=== PATIENT | male | born 1940 | race Caucasian/White ===

== ENCOUNTER 2017-04-09 01:18 | Emergency (ER) | payer MEDICARE, BC ==
[2017-04-09 01:58] VITALS: BP 138/81
--- NOTE | 2017-04-09 02:21 | EDM.PDOC ---
ED HPI GENERAL MEDICAL PROBLEM - General Chief Complaint: Abdominal Pain Stated Complaint: STOMACH PAIN Time Seen by Provider: 04/09/17 02:18 Source of Information: Reports: Patient, Family History Limitations: Reports: No Limitations - History of Present Illness INITIAL COMMENTS - FREE TEXT/NARRATIVE: This patient comes in with complaint of constipation. He's had some mild constipation for a few days. He's been taking a little bit of neuroleptics off and on. Last bowel movement was yesterday morning and it was pretty small actually his then later said that he actually had a small bowel movement today after taking some Miramax. He has mostly some mild right-sided abdominal pain. Earlier today it was very sharp especially when he was up moving around but he said once he laid down on the stretcher the pain completely went away - Related Data Allergies Allergy/AdvReac Type Severity Reaction Status Date / Time Penicillins Allergy Unknown Cannot Verified 04/09/17 01:45 Remember Home Meds: Home Meds Aspirin [Ecotrin] 81 mg PO DAILY 04/09/17 [History] Atenolol 12.5 mg PO DAILY 04/09/17 [History] Lisinopril 5 mg PO DAILY 04/09/17 [History] Tamsulosin HCl [Flomax] 0.4 mg PO DAILY 04/09/17 [History] Warfarin [Coumadin] 5.5 mg PO DAILY 04/09/17 [History] Past Medical History HEENT History: Reports: Hard of Hearing, Macular Degeneration Cardiovascular History: Reports: Arrhythmia, Heart Failure, Stents Genitourinary History: Reports: Prostate Disorder Musculoskeletal History: Reports: Other (See Below) Other Musculoskeletal History: right knee "pops out" - Past Surgical History GI Surgical History: Reports: Hernia Repair/Other Musculoskeletal Surgical History: Reports: Other (See Below) Other Musculoskeletal Surgeries/Procedures:: hip pinning post fx Social & Family History - Tobacco Use Smoking Status *Q: Never Smoker Second Hand Smoke Exposure: No - Caffeine Use Caffeine Use: Reports: Other Other Caffeine Use: decaf - Recreational Drug Use Recreational Drug Use: No ED ROS GENERAL - Review of Systems Review Of Systems: ROS reveals no pertinent complaints other than HPI. ED EXAM, GI/ABD - Physical Exam Exam: See Below Exam Limited By: Uncooperative General Appearance: WD/WN, No Apparent Distress Eyes: Bilateral: Normal Appearance Throat/Mouth: Normal Inspection Respiratory/Chest: Lungs Clear Cardiovascular: Normal Peripheral Pulses, Regular Rate, Rhythm GI/Abdominal: Soft, Other (There is some mild tenderness to the right side of the abdomen and areas where I think I can palpate stool. Tenderness is just very mild.) Extremities: Normal Inspection Neurological: Alert, Oriented Course - Vital Signs Last Recorded V/S: Last Vital Signs Temp 36.4 C 04/09/17 01:46 Pulse 77 04/09/17 01:46 Resp 16 04/09/17 01:46 BP 138/81 04/09/17 01:46 Pulse Ox 95 04/09/17 01:46 Departure - Departure Time of Disposition: 02:19 Disposition: Home, Self-Care 01 Condition: Fair Clinical Impression: Constipation - Discharge Information Instructions: Constipation, Adult, [id number], Abdominal Pain, Adult, Easy-to -Read Referrals: PCP,None [Primary Care Provider] - Forms: ED Department Discharge Additional Instructions: Continue using the Daniela lax as before. Be sure to drink plenty of water. Prune juice may also help. If needed you may use a magnesium laxative such as milk of magnesia. High-fiber diet will help prevent this in the future.
== END 2017-04-09 02:43 | disposition home or self-care (01) ==
LOC: JP.ED 01:18
DX: K59.00 Constipation, unspecified (principal); I50.9 Heart failure, unspecified; Z98.890 Other specified postprocedural states; Z95.4 Presence of other heart-valve replacement; Z79.82 Long term (current) use of aspirin; Z79.899 Other long term (current) drug therapy; Z88.0 Allergy status to penicillin
CPT/HCPCS: 99282; 99283